=== PATIENT | female | born 1940 | race Caucasian/White ===

== ENCOUNTER 2016-10-06 18:06 | Emergency (ER) | payer MEDICARE, OTHER ==
[~2016-10-06] VITALS: Ht 165.1 cm; Wt 81.0 kg
[~2016-10-06 18:06] MED LIST: PARO25CR PO; SERO50TA4 PO
[2016-10-06 18:12] VITALS: BP 115/56; PULSE 86; RESP 16; TEMP 97.5; O2SAT 97
[2016-10-06] MEDS ORDERED: METOCLOPRAMIDE HCL 10 MG/2 ML VIAL IV PUSH ONE (19:45)
[2016-10-06] MEDS ORDERED: MORPHINE SULFATE 4 MG/ML INJ IV PUSH ONE (19:45)
[2016-10-06] MEDS ORDERED: SODIUM CHLORIDE 0.9% FLUSH 5 ML FLUSH IVF PRN ×2 (19:45)
--- NOTE | 2016-10-06 19:48 | PD ---
HPI Chief Complaint: Dizziness Time Seen by Provider: 19:29 Travel History International Travel<30 days: No Contact w/Intl Traveler<30days: No Traveled to known affect area: No History of Present Illness HPI 76-year-old female with history of Alzheimer's, here with her sister for evaluation of abdominal pain, headache, and dizziness. Symptoms started earlier today. Patient reports history of hysterectomy. No other known abdominal surgeries. Last bowel movement was earlier today and was normal. She did have some dark urine and some dysuria earlier today. No fevers, chills , cough, or recent illness. Headache was not thunderclap in onset, is diffuse, pressure-like. Lower abdominal pain is cramping, intermittent, worse with movement and palpation, moderate. The patient's sister reports that she has been eating and drinking a lot less lately. PFSH Past Medical History Alzheimer's Disease: Yes Arthritis: Yes Asthma: No Autoimmune Disease: No Blood Disorders: No Anxiety: Yes (PAXIL DAILY) Depression: No Heart Rhythm Problems: No Cancer: No Cardiac Catheterization: No Cardiovascular Problems: No High Cholesterol: No Chest Pain: No Congestive Heart Failure: No COPD: No Cerebrovascular Accident: No Dementia: Yes Diabetes: No Diminished Hearing: No Gastrointestinal Disorders: Yes GERD: Yes Glaucoma: No Genitourinary: No Hepatitis: No Hiatal Hernia: No Heparin Induced Thrombocytopen: Yes Hypertension: No Immune Disorder: No Musculoskeletal: Yes Neurologic: No Psychiatric: Yes Reproductive: No Respiratory: No Immunizations Current: Yes Myocardial Infarction: No Sleep Apnea: No Ulcer: No Tetanus Vaccination: Unknown Influenza Vaccination: Yes ?: Not : 1 Para: 1 Miscarriage: 0 : 0 Past Surgical History Abdominal Surgery: No Appendectomy: No Cardiac Surgery: No Cholecystectomy: Yes Coronary Artery Bypass Graft: No Endocrine Surgery: No Eye Surgery: No Genitourinary Surgery: No Gynecologic Surgery: Yes (HYSTERECTOMY) Hysterectomy: Yes Oral Surgery: No Thoracic Surgery: No Other Surgery: Yes Family History Family Myocardial Infarction: Yes (father ) Social History Alcohol Use: No Tobacco Use: No (QUIT APPROX 15 YRS AGO) Substance Use: No Allergies-Medications (Allergen,Severity, Reaction): Coded Allergies: No Known Allergies (Verified , 10/06/16) Reported Meds & Prescriptions Reported Meds & Active Scripts Active Reported Calcium 1000 + D (Calcium Carbonate-Cholecalciferol) 1,000-800 Mg-Unit Tab 1 Tab PO DAILY Zyrtec Allergy (Cetirizine HCl) 10 Mg Cap 10 Mg PO DAILY Stool Softener (Docusate Sodium) 100 Mg Cap 100 Mg PO TID Laxative (Sennosides) 25 Mg Tab 25 Mg PO HS Centrum Silver (Multiple Vitamins W/ Minerals) 1 Tab 1 Tab PO DAILY Namenda (Memantine) 10 Mg Tab 10 Mg PO BID Aricept (Donepezil) 10 Mg Tab 10 Mg PO HS Paroxetine ER (Paroxetine HCl) 25 Mg Tab 25 Mg PO DAILY Propranolol (Propranolol HCl) 10 Mg Tab 10 Mg PO Q12HR Seroquel (Quetiapine Fumarate) 50 Mg Tab 50 Mg PO DAILY Review of Systems Except as stated in HPI: all other systems reviewed are Neg Physical Exam Narrative GENERAL: Well-developed, well-nourished, no acute distress. SKIN: Warm and dry. No rash. HEAD: Atraumatic. Normocephalic. EYES: Pupils equal and round. No scleral icterus. No injection or drainage. No nystagmus. ENT: Mucous membranes pink and dry. Bilateral tympanic membranes and external auditory canals are normal. NECK: Trachea midline. No JVD. No nuchal rigidity. CARDIOVASCULAR: Regular rate and rhythm. RESPIRATORY: No accessory muscle use. Clear to auscultation. Breath sounds equal bilaterally. GASTROINTESTINAL: Abdomen soft, non-tender, nondistended. Hepatic and splenic margins not palpable. MUSCULOSKELETAL: No obvious deformities. No clubbing. No cyanosis. No edema. NEUROLOGICAL: Awake and alert. No obvious cranial nerve deficits. Motor grossly within normal limits. Normal speech. No focal deficits. PSYCHIATRIC: Bizzare affect. Poor eye contact. Data Data Last Documented VS Vital Signs Date Time Temp Pulse Resp B/P Pulse Ox O2 Delivery O2 Flow Rate FiO2 10/06/16 21:09 63 16 121/55 96 Room Air 10/06/16 18:12 97.5 Orders Electrocardiogram (10/06/16 19:39) Ckmb (Isoenzyme) Profile (10/06/16 19:39) Complete Blood Count With Diff (10/06/16 19:39) Magnesium (Mg) (10/06/16 19:39) Prothrombin Time / Inr (Pt) (10/06/16 19:39) Act Partial Throm Time (Ptt) (10/06/16 19:39) Troponin I (10/06/16 19:39) Lipase (10/06/16 19:39) Chest, Single Ap (10/06/16 19:39) Ecg Monitoring (10/06/16 19:39) Iv Access Insert/Monitor (10/06/16 19:39) Oximetry (10/06/16 19:39) Sodium Chloride 0.9% Flush (Ns Flush) (10/06/16 19:45) Comprehensive Metabolic Panel (10/06/16 19:39) Ct Abd/Pel W Iv Contrast(Rout) (10/06/16 19:39) Morphine Inj (Morphine Inj) (10/06/16 19:45) Sodium Chlor 0.9% 1000 Ml Inj (Ns 1000 M (10/06/16 19:39) Sodium Chloride 0.9% Flush (Ns Flush) (10/06/16 19:45) Ct Brain W/O Iv Contrast(Rout) (10/06/16 ) Metoclopramide Inj (Reglan Inj) (10/06/16 19:45) Cath For Specimen (10/06/16 19:39) Influenzae A/B Antigen (10/06/16 19:39) Urinalysis - C+S If Indicated (10/06/16 20:45) Iodixanol 320 Inj (Rad Ct) (Visipaque 32 (10/06/16 20:55) Urine Culture (10/06/16 21:10) Labs Laboratory Tests Test 10/06/16 10/06/16 20:00 21:10 White Blood Count 13.2 TH/MM3 Red Blood Count 4.32 MIL/MM3 Hemoglobin 11.1 GM/DL Hematocrit 33.8 % Mean Corpuscular Volume 78.4 FL Mean Corpuscular Hemoglobin 25.8 PG Mean Corpuscular Hemoglobin 32.9 % Concent Red Cell Distribution Width 14.0 % Platelet Count 470 TH/MM3 Mean Platelet Volume 7.5 FL Neutrophils (%) (Auto) 74.3 % Lymphocytes (%) (Auto) 14.7 % Monocytes (%) (Auto) 6.2 % Eosinophils (%) (Auto) 2.8 % Basophils (%) (Auto) 2.0 % Neutrophils # (Auto) 9.8 TH/MM3 Lymphocytes # (Auto) 1.9 TH/MM3 Monocytes # (Auto) 0.8 TH/MM3 Eosinophils # (Auto) 0.4 TH/MM3 Basophils # (Auto) 0.3 TH/MM3 CBC Comment DIFF FINAL Differential Comment Prothrombin Time 11.3 SEC Prothromb Time International 1.0 RATIO Ratio Activated Partial 34.8 SEC Thromboplast Time Sodium Level 137 MEQ/L Potassium Level 3.8 MEQ/L Chloride Level 101 MEQ/L Carbon Dioxide Level 27.2 MEQ/L Anion Gap 9 MEQ/L Blood Urea Nitrogen 11 MG/DL Creatinine 1.30 MG/DL Estimat Glomerular Filtration 40 ML/MIN Rate Random Glucose 108 MG/DL Calcium Level 8.5 MG/DL Magnesium Level 2.0 MG/DL Total Bilirubin 0.5 MG/DL Aspartate Amino Transf 16 U/L (AST/SGOT) Alanine Aminotransferase 12 U/L (ALT/SGPT) Alkaline Phosphatase 105 U/L Total Creatine Kinase 30 U/L Troponin I LESS THAN 0.02 NG/ML Total Protein 7.7 GM/DL Albumin 2.7 GM/DL Lipase 150 U/L Urine Collection Type CATH Urine Color YELLOW Urine Turbidity CLEAR Urine pH 6.0 Urine Specific [place] 1.018 Urine Protein 30 mg/dL Urine Glucose (UA) NEG mg/dL Urine Ketones TRACE mg/dL Urine Occult Blood MOD Urine Nitrite NEG Urine Bilirubin NEG Urine Leukocyte Esterase TRACE Urine RBC 0-3 /hpf Urine WBC 6-8 /hpf Urine WBC Clumps RARE Urine Bacteria FEW /hpf Microscopic Urinalysis Comment CATH-CULTURE IND Urine Collection Time [address] [facility] Medical Decision Making Medical Screen Exam Complete: Yes Emergency Medical Condition: Yes Medical Record Reviewed: Yes Interpretation(s) EKG: Sinus, rate 62, normal axis, normal intervals, low QRS folded she is in limb leads, no acute ischemic abnormality. Differential Diagnosis Appendicitis, diverticulitis, UTI, cystitis, colitis, dehydration, vertigo, intracranial abnormality, SAH/meningitis/encephalitis unlikely Narrative Course Vital signs show heart rate 86, blood pressure 115/56, pulse ox 97% on room air , oral temp of 97.5F. CBC shows WBC 13.2, hemoglobin 11.1, hematocrit 33.8, platelets 470, neutrophils 74.3%. CMP is remarkable for creatinine 1.3, GFR 40 which is around her baseline, otherwise unremarkable. Cardiac enzymes are negative. Lipase is 150. UA is suggestive of UTI. Influenza is negative. CT abdomen pelvis: CONCLUSION: 1. Mild mural thickening of the colon characteristic of a mild colitis. 2. Cholecystectomy with common bile duct mildly prominent at 10 mm. 3. No renal calculi or obstructive uropathy. CT head read as normal exam. Chest x-ray shows minimal basilar atelectasis, no focal consolidation or significant effusion. The patient was given pain medication and Reglan and is resting comfortably. She is feeling much better. Her abdominal exam shows mild suprapubic tenderness. No peritoneal signs. She is anxious and would like to go home. I will start her on Cipro and Flagyl. PMD follow-up this week. Patient was informed on when to return to the emergency department. With the patient and the patient's sister verbalizes understanding and agreement with plan. Diagnosis Primary Impression: UTI (urinary tract infection) Qualified Code: N39.0 - Urinary tract infection with hematuria, site unspecified Additional Impression: Colitis Referrals: Primary Care Physician 3 days Additional Instructions: Follow-up with your primary care physician this week. Take medications as prescribed. Stay hydrated with plenty of fluids. Return to the emergency department for worsening symptoms or any other concerns. Scripts Metronidazole (Flagyl)500 Mg [id number] Mg PO BID 10 Days Ref 0 Prov:Darrell Ramirez MD 10/06/16 Ciprofloxacin (Cipro)500 Mg [id number] Mg PO BID 10 Days Ref 0 Prov:Darrell Ramirez MD 10/06/16 Disposition: 01 DISCHARGE HOME Condition: Stable Darrell Ramirez MD Oct 06, 2016 19:48
[2016-10-06] MEDS ORDERED: ZYRT10CA PO (19:49)
[2016-10-06] MEDS ORDERED: SERO50TA PO (19:49)
[2016-10-06] MEDS ORDERED: ARIC10TA PO (19:49)
[2016-10-06] MEDS ORDERED: CENTTAB PO (19:49)
[2016-10-06] MEDS ORDERED: NAME10TA PO (19:49)
[2016-10-06] MEDS ORDERED: CALCTAB80 PO (19:49)
[2016-10-06] MEDS ORDERED: PARO25TA PO (19:49)
[2016-10-06] MEDS ORDERED: STOO100C PO (19:49)
[2016-10-06] MEDS ORDERED: [UNRECOGNIZED DRUG - CODE] PO (19:49)
[2016-10-06] MEDS ORDERED: PROP10TA6 PO (19:49)
--- NOTE | 2016-10-06 20:02 | RADHPO ---
EXAM DATE/TIME: 10/06/2016 19:46 [facility] COMPARISON: CHEST SINGLE AP, June 21, 2015, 22:07. INDICATIONS : Chest pain. MEDICAL HISTORY : Gastroesophageal reflux disease. SURGICAL HISTORY : Hysterectomy. ENCOUNTER: Initial ACUITY: 1 day PAIN SCORE: 4/10 LOCATION: Bilateral chest FINDINGS: A single view of the chest demonstrates the lungs to be symmetrically aerated without evidence of mas s, infiltrate or effusion. The cardiomediastinal contours are unremarkable. Osseous structures are intact. CONCLUSION: 1. Minimal basilar atelectasis. No focal consolidation or significant effusion. Luis Marie MD on October 06, 2016 at 20:00 Board Certified Radiologist. This report was verified electronically.
[2016-10-06 20:07] LABS: AUTOMATED NEUTROPHIL # 9.8 TH/MM3 (1.8-7.7); BASOPHIL # 0.3 TH/MM3 (0-0.2); EOSINOPHIL # 0.4 TH/MM3 (0-0.4); EOSINOPHIL % 2.8 % (0.0-4.0); HEMATOCRIT 33.8 % (35.0-46.0); LYMPH % 14.7 % (9.0-44.0); LYMPHOCYTE # 1.9 TH/MM3 (1.0-4.8); MEAN CELL VOLUME 78.4 FL (80.0-100.0); MEAN CORPUSCULAR HEMOGLOBIN 25.8 PG (27.0-34.0); MEAN CORPUSCULAR HGB CONC 32.9 % (32.0-36.0); MONO % 6.2 % (0.0-8.0); PLATELET COUNT 470 TH/MM3 (150-450); RED BLOOD COUNT 4.32 MIL/MM3 (4.00-5.30); WHITE BLOOD COUNT 13.2 TH/MM3 (4.0-11.0)
[2016-10-06] MEDS: SODIUM CHLOR 0.9% 1000 ML INJ 1,000 ML IV SCH ×2 (20:10→21:49)
[2016-10-06 20:13] LABS: HEMO FLAGS DIFF FINAL
[2016-10-06 20:18] VITALS: BP 105/50; PULSE 62; RESP 16; O2SAT 98
[2016-10-06 20:18] LABS: CHLORIDE 101 MEQ/L (98-107); NEUT % 74.3 % (16.0-70.0); POTASSIUM 3.8 MEQ/L (3.5-5.1); SODIUM (NA) 137 MEQ/L (136-145)
[2016-10-06 20:25] LABS: ANION GAP 9 MEQ/L (5-15); BICARBONATE 27.2 MEQ/L (21.0-32.0); BLOOD UREA NITROGEN 11 MG/DL (7-18)
[2016-10-06 20:28] LABS: ALT (GPT) 12 U/L (10-53); AST (GOT) 16 U/L (15-37); GLOMERULAR FILTRATION RATE 40 ML/MIN (>89)
[2016-10-06 20:29] LABS: TOTAL BILIRUBIN ADULT 0.5 MG/DL (0.2-1.0)
[2016-10-06 20:31] LABS: ALKALINE PHOSPHATASE 105 U/L (45-117)
[2016-10-06 20:35] LABS: APTT (PATIENT) 34.8 SEC (24.3-30.1); PROTHROMBIN TIME - PATIENT 11.3 SEC (9.8-11.6)
[2016-10-06 20:38] LABS: CREATINE KINASE 30 U/L (26-192)
[2016-10-06] MEDS ORDERED: IODIXANOL 320 MG/ML 10 ML VIAL (for Rad CT) IV ONE (20:55)
--- NOTE | 2016-10-06 21:04 | RADHPO ---
EXAM DATE/TIME: 10/06/2016 20:45 [facility] COMPARISON: No previous studies available for comparison. INDICATIONS : Dizziness today. RADIATION DOSE: 67.29 CTDIvol (mGy) MEDICAL HISTORY : None SURGICAL HISTORY : None. ENCOUNTER: Initial ACUITY: 1 day PAIN SCALE: 0/10 LOCATION: cranial TECHNIQUE: Multiple contiguous axial images were obtained of the head. Using automated exposure control and adj ustment of the mA and/or kV according to patient size, radiation dose was kept as low as reasonably a chievable to obtain optimal diagnostic quality images. FINDINGS: CEREBRUM: The ventricles are normal for age. No evidence of midline shift, mass lesion, hemorrhage or acute in farction. No extra-axial fluid collections are seen. POSTERIOR FOSSA: The cerebellum and brainstem are intact. The 4th ventricle is midline. The cerebellopontine angle i s unremarkable. EXTRACRANIAL: The visualized portion of the orbits is intact. SKULL: The calvaria is intact. No evidence of skull fracture. CONCLUSION: Normal examination for a patient of this age. Luis Marie MD on October 06, 2016 at 21:02 Board Certified Radiologist. This report was verified electronically.
[2016-10-06 21:09] VITALS: BP 121/55; PULSE 63; RESP 16; O2SAT 96
[2016-10-06 21:13] LABS: GLUCOSE,URINE NEG (NEG); KETONE, URINE TRACE mg/dL (NEG); NITRITE,URINE NEG (NEG)
[2016-10-06 21:20] LABS: BLOOD, URINE MOD (NEG)
[2016-10-06 21:22] LABS: METHOD OF COLLECTION CATH; URINE COLOR YELLOW (YELLW/STRAW)
[2016-10-06 21:23] LABS: BACTERIA, URINE FEW /hpf; COMMENT (UR) CATH-CULTURE IND; COMMENT2 (UR) MUCOUS PRESENT; CULTURE IF INDICATED CATH CULTURE IND; RBC, URINE 0-3 /hpf (0-3)
--- NOTE | 2016-10-06 21:31 | RADHPO ---
EXAM DATE/TIME: 10/06/2016 20:49 [facility] COMPARISON: No previous studies available for comparison. INDICATIONS : Right sided abdomen pain with nausea. IV CONTRAST: 50 cc Visipaque (iodixanol) IV ORAL CONTRAST: No oral contrast ingested. RADIATION DOSE: 16.07 CTDIvol (mGy) MEDICAL HISTORY : None SURGICAL HISTORY : Hysterectomy. Cholecystectomy. ENCOUNTER: Initial ACUITY: 1 day PAIN SCALE: 7/10 LOCATION: Right abdomen TECHNIQUE: Volumetric scanning of the abdomen and pelvis was performed. Using automated exposure control and ad justment of the mA and/or kV according to patient size, radiation dose was kept as low as reasonably achievable to obtain optimal diagnostic quality images. FINDINGS: Lung bases are clear except for minimal scarring. No acute bony abnormalities. Spleen, adrenals, kidneys and pancreas unremarkable. Postoperative cholecystectomy. No focal liver ab normalities. The appendix is normal. There is some very mild thickening of the colon which is characteristic of a mild colitis. CONCLUSION: 1. Mild mural thickening of the colon characteristic of a mild colitis. 2. Cholecystectomy with common bile duct mildly prominent at 10 mm. 3. No renal calculi or obstructive uropathy. Luis Marie MD on October 06, 2016 at 21:22 Board Certified Radiologist. This report was verified electronically.
[2016-10-06] MEDS ORDERED: CIPR-9 PO (21:40)
[2016-10-06] MEDS ORDERED: METR-1 PO (21:40)
[2016-10-06] MEDS ORDERED: metroNIDAZOLE 500 MG TAB PO ONE (21:45)
[2016-10-06] MEDS ORDERED: CIPROFLOXACIN 500 MG TAB PO ONE (21:45)
[2016-10-06 21:50] VITALS: BP 124/74
--- NOTE | 2016-10-07 04:56 | EKG ---
Date Performed: 10/06/2016 Time Performed: 19:47:54 PTAGE: 76 years EKG: Sinus rhythm Low QRS voltages in limb leads Borderline ECG NO SIGNIFICANT CHANGE FROM PRIOR ELECTROCARDIOGRAM. PREVIOUS TRACING : 06/22/2015 04.04 DOCTOR: Feng Us Interpretating Date/Time 10/07/2016 04:55:39
== END 2016-10-06 22:02 | disposition home or self-care (01) ==
LOC: PHED 18:06
DX: N39.0 Urinary tract infection, site not specified (principal); K52.9 Noninfective gastroenteritis and colitis, unspecified; G30.9 Alzheimer's disease, unspecified; M19.90 Unspecified osteoarthritis, unspecified site; F41.9 Anxiety disorder, unspecified
CPT/HCPCS: 70450; 71010; 74177; 80053; 81001; 82550; 83690; 83735; 84484; 85025; 85610; 85730; 87086; 87804; 93005; 96361; 96374; 96375; 99284; J2270; J2765; J7030; P9612; Q9967